=== PATIENT | female | born 1995 | race Caucasian/White ===

== ENCOUNTER 2024-08-11 07:59 | Emergency (ER) | payer BC ==
[2024-08-11 08:15] VITALS: TEMP 98.2
[2024-08-11] MEDS ORDERED: Lactated Ringers 1,000 ML IV ONE ×2 (08:23→09:40)
[2024-08-11] MEDS ORDERED: Lomotil ONE ×2 (08:23→10:03)
[2024-08-11] MEDS: Lactated Ringers 1,000 ML IV ONE (08:24)
[2024-08-11] MEDS: Lomotil PO ONE (08:24)
[2024-08-11] MEDS ORDERED: Carafate 1 GM PO ONE (08:27)
[2024-08-11] MEDS: Carafate 1 GM PO ONE (08:28)
--- NOTE | 2024-08-11 08:47 | ERPHSYRPT ---
- History of Present Illness Time Seen by Provider: 08/11/24 08:45 Source: patient Exam Limitations: no limitations Patient Subjective Stated Complaint: C/O diarrhea for a few days. Patient states she is supposed to be getting later today. She has POTS and is worried. Denies any pain. No vomiting. Triage Nursing Assessment: Patient ambulated back to ER without difficulties. She is alert and oriented. Skin tone normal. MENDEZ WNL. No SOB. Physician History: C/O diarrhea for a few days. Patient states she is supposed to be getting later today. She has Hx of Postural orthostatic Tachycardia and is worried about dehydration. Hx of C diff colitis in Apr 29. Denies any pain. No vomiting. Timing/Duration: today Severity: mild Associated Symptoms: denies symptoms Allergies/Adverse Reactions: Penicillins Allergy (Severe, Verified 08/11/24 08:04) Rash Home Medications: Spironolactone 25 mg [Aldactone 25 MG] 25 mg PO DAILY 08/11/24 [History] Hx Tetanus, Diphtheria Vaccination/Date Given: Yes Hx Influenza Vaccination/Date Given: No Hx Pneumococcal Vaccination/Date Given: No Immunizations Up to Date: Yes Travel Risk - International Travel Have you traveled outside of the country in past 3 weeks: No - Emerging Infectious Disease Are you exhibiting symptoms associated with any current EIDs: Yes Symptoms: Diarrhea Comment: History of C-Diff - Review of Systems Constitutional: No Fever, No Chills Eyes: No Symptoms Ears, Nose, & Throat: No Symptoms Respiratory: No Cough, No Dyspnea Cardiac: No Chest Pain, No Edema, No Syncope Abdominal/Gastrointestinal: No Abdominal Pain, No Nausea, No Vomiting, No Diarrhea Genitourinary Symptoms: No Dysuria Musculoskeletal: No Back Pain, No Neck Pain Skin: No Rash Neurological: No Dizziness, No Focal Weakness, No Sensory Changes Psychological: No Symptoms Endocrine: No Symptoms All Other Systems: Reviewed and Negative - Past Medical History Pertinent Past Medical History: Yes Other Medical History: POTS, C-diff April 2024 - Past Surgical History Past Surgical History: No - Female History Hx Now: No - Social History Smoking Status: Never smoker Exposure to second hand smoke: No Drug Use: none - Social Determinants of Health Will the patient participate in the screening: Yes Do you worry about a steady place to live?: No Do you have any problems with any of the following?: No known problems In the past 12 months,have you had to go without utilities?: No Transportation Issues: No Has anyone in your support network made you feel unsafe?: No Have you or anyone in your house had to go w/o enough food: No - Nursing Vital Signs Nursing Vital Signs: Initial Vital Signs Temperature 98.2 F 08/11/24 08:05 Pulse Rate 94 H 08/11/24 08:05 Respiratory Rate 17 08/11/24 08:05 Blood Pressure 111/71 08/11/24 08:05 O2 Sat by Pulse Oximetry 99 08/11/24 08:05 Pain Scale Pain Intensity 0 - Physical Exam General Appearance: no apparent distress, alert Eye Exam: PERRL/EOMI, eyes nml inspection Ears, Nose, Throat Exam: normal ENT inspection, TMs normal, pharynx normal, m oist mucous membranes Neck Exam: normal inspection, non-tender, supple, full range of motion Respiratory Exam: normal breath sounds, lungs clear, No respiratory distress Cardiovascular Exam: regular rate/rhythm, normal heart sounds, normal peripheral pulses Gastrointestinal/Abdomen Exam: soft, normal bowel sounds, No tenderness, No mass Back Exam: normal inspection, normal range of motion, No CVA tenderness, No vertebral tenderness Extremity Exam: normal inspection, normal range of motion, pelvis stable Neurologic Exam: alert, oriented x 3, cooperative, normal mood/affect, nml cerebellar function, nml station & gait, sensation nml, No motor deficits Skin Exam: normal color, warm, dry, No rash Lymphatic Exam: No adenopathy SpO2: 99 - Course Nursing assessment & vital signs reviewed: Yes Ordered Tests: Medication Summary Generic Name Dose Route Start Last Admin Trade Name Freq PRN Reason Stop Dose Admin Lactated Ringer's 1,000 mls @ 999 mls/hr 08/11/24 10:00 08/11/24 09:40 Lactated Ringers IV 09/10/24 09:59 999 mls/hr .Q1H1M RAMSES Administration Discontinued Medications Generic Name Dose Route Start Last Admin Trade Name Freq PRN Reason Stop Dose Admin Diphenoxylate HCl/Atropine 2 tablet 08/11/24 08:20 08/11/24 08:24 Diphenoxylate Hcl/Atropine 1 Tablet PO 08/11/24 08:21 2 tablet STAT ONE Administration Diphenoxylate HCl/Atropine Confirm 08/11/24 08:23 Diphenoxylate Hcl/Atropine 1 Tablet Administered 08/11/24 08:24 Dose 2 tablet .ROUTE .STK-MED ONE Lactated Ringer's 1,000 mls @ 999 mls/hr 08/11/24 08:20 08/11/24 09:27 Lactated Ringers IV 08/11/24 09:20 Infused .Q1H1M ONE Infusion Lactated Ringer's Confirm 08/11/24 08:23 Lactated Ringers Administered 08/11/24 08:24 Dose 1,000 mls @ ud IV .STK-MED ONE Ondansetron HCl 4 mg 08/11/24 09:29 08/11/24 09:31 Ondansetron Hcl 4 Mg/2 Ml Vial IV 08/11/24 09:30 4 mg STAT ONE Administration Ondansetron HCl Confirm 08/11/24 09:29 Ondansetron Hcl 4 Mg/2 Ml Vial Administered 08/11/24 09:30 Dose 4 mg .ROUTE .STK-MED ONE Sucralfate 1 g 08/11/24 08:19 08/11/24 08:28 Sucralfate 1 G Tablet PO 08/11/24 08:20 1 g STAT ONE Administration Sucralfate Confirm 08/11/24 08:27 Sucralfate 1 G Tablet Administered 08/11/24 08:28 Dose 1 g PO .STK-MED ONE - Progress Progress: improved Counseled pt/family regarding: diagnosis, need for follow-up Medical Desision Making - Independent Historian Additional History obtained from: Family - Diagnostic Testing Diagnostic test were ordered, analyzed, and reviewed by me: No - Risk of complications Minimal Risk: Minimal risk of morbidity - Departure Departure Disposition: Home Clinical Impression: Diarrhea in adult patient Condition: Stable Critical Care Time: No Referrals: BERNA MCKENZIE FNP [Primary Care Provider] - Follow up/PCP as directed Instructions: Diarrhea and Traveler's Diarrhea, Adult (DC) Additional Instructions: Discharge/Care Plan BRYAN CHEUNG was seen on 08/11/24 in the Emergency Room. The patient was counseled regarding Diagnosis,Lab results, Imaging studies, need for follow up and when to return to the Emergency Room. Prescriptions given: Discharge Note I have spoken with the patient and/or caregivers. I have explained the patient's condition, diagnosis and treatment plan based on the information available to me at this time. I have answered the patient's and/or caregiver's questions and addressed any concerns. The patient and/or caregivers have as good understanding of the patient's diagnosis, condition and treatment plan as can be expected at this point. The vital signs have been stable. The patient's condition is stable and appropriate for discharge from the emergency department. The patient will pursue further outpatient evaluation with the primary care physician or other designated or consulting physician as outlined in the discharge instructions. The patient and/or caregivers are agreeable to this plan of care and follow-up instructions have been explained in detail. The patient and/or caregivers have received these instruction. The patient/and or caregivers are aware that any significant change in condition or worsening of symptoms should prompt an immediate return to this or the closest emergency department or call 911. BRYAN CHEUNG was seen on 08/11/24 n the Emergency Room. At that time you were treated for an emergent condition, during your visit Laboratory, Radiology and/or other procedures may have been ordered. It is very important that you follow-up with your Primary Care Physician SUJEY GAVIRIA within the next 24-48 hours to review your Emergency Room visit and the final results of testing that was ordered. Some test results such as Urine Cultures, Blood Cultures, and other cultures if ordered will not be finalized for 24-48 hours. If you do not have a Primary Care Provider please call the medical records department at [phone] ext [phone] to obtain a copy of your results or you may sign into our patient portal to obtain these results by visiting us @ [email or web address] and completing the following steps: 1. Click on the Patient Portal link 2. Click the Patient Self Enrollment Link to complete the enrollment form and entering your 3. Once the enrollment form is completed you will receive an email with a temporary ID and password at the email address you provided. 4. Next choose a user name and password. Your user name must be at least 4 characters long and your password must be at least 4 characters long. 5. Choose a security question from the list and provide your answer to the question. If you already have signed into the Health Portal you may access your Health Care Information 27/12 by the following steps: 1. Login to our website @ [email or web address] 2. Enter your original user name and password. FAQS [facility] Portal is an online tool that contains your Lab Results, Radiology Reports, Visit History, Discharge Instructions and Health Summary Lab and Radiology Results will not be available for 72 hours on the portal. The Portal is a secure site, passwords are encryted and URLs are re-written so they cannot be copied and pasted. You and authorized family members are the only ones who can access your Portal. Also there is a timeout feature that protects your information if you leave the Portal page open. If you have technical difficulty please use the Contact Us link on the page this will allow you to submit any questions you have regarding the Portal or you may contact the Medical Record Department at [phone] ext [phone].
[2024-08-11 09:12] VITALS: RESP 18
[2024-08-11] MEDS ORDERED: Zofran 4 MG/2 ML VIAL ONE (09:29)
[2024-08-11] MEDS: Zofran 4 MG/2 ML VIAL IV ONE (09:31)
[2024-08-11] MEDS: Lactated Ringers 1,000 ML IV SCH (09:40)
[2024-08-11 09:44] VITALS: PULSE 72
[2024-08-11] MEDS: Lomotil PO PRN (10:03)
[2024-08-11] MEDS ORDERED: ZOFRAN ODT 4 MG ONE (10:03)
[2024-08-11] MEDS: ZOFRAN ODT 4 MG PO PRN (10:04)
[2024-08-11 10:34] VITALS: BP 105/66; O2SAT 100
== END 2024-08-11 10:50 | disposition home or self-care (01) ==
LOC: ED 07:59
DX: R19.7 Diarrhea, unspecified (principal); Z79.899 Other long term (current) drug therapy
CPT/HCPCS: 96361; 96374; 99284; J2405; Q0162; A9270-GY